=== PATIENT | male | born 1945 | race Caucasian/White ===

== ENCOUNTER → 2018-11-30 | Outpatient (CLI) | payer MEDICARE, BC | END | disposition home or self-care (01) | LOC: CFH 09:07 | PROVIDERS: ATTEND Nurse Practitioner Family | DX: K52.9 Noninfective gastroenteritis and colitis, unspecified (principal); K63.89 Other specified diseases of intestine; K57.30 Diverticulosis of large intestine without perforation or abscess without bleeding; I70.0 Atherosclerosis of aorta; M16.10 Unilateral primary osteoarthritis, unspecified hip; N42.89 Other specified disorders of prostate; M16.11 Unilateral primary osteoarthritis, right hip | CPT/HCPCS: 74176 ==

== ENCOUNTER → 2018-12-28 | Outpatient (CLI) | payer MEDICARE, BC ==
[~2018-12-28] MED LIST: OMNIPAQUE 350 MG/ML, 100ML BOTTLE ONE
== END | disposition home or self-care (01) ==
LOC: PETCFH 07:36
PROVIDERS: ATTEND Internal Medicine Hematology & Oncology
DX: M51.34 Other intervertebral disc degeneration, thoracic region (principal); M48.04 Spinal stenosis, thoracic region; C61 Malignant neoplasm of prostate; Z85.72 Personal history of non-Hodgkin lymphomas
CPT/HCPCS: 72157; 74177; 78306; A9503; Q9967

== ENCOUNTER 2019-02-08 07:00 | Inpatient (IN) | payer MEDICARE, BC ==
[~2019-02-08] VITALS: Ht 177.8 cm; Wt 93.1 kg
[~2019-02-08 07:00] MED LIST changes: +ACET-1600 PO; +ASPI81TA45 PO; +CHOL2000 PO; +DICL50TA4 PO; +GLUC1TAB35 PO; +INSU100V35 SQ; +IRON PO; +LACT1CAP64 PO; +LEVO75TA PO; +LINA5TAB PO; +LISI-170 PO; +MELO7.5T31 PO; +MULT-516 PO; +OMEG1CAP6 PO; -OMNIPAQUE 350 MG/ML, 100ML BOTTLE ONE; +PREG75CA PO; +SIMV40TA3 PO
[2019-02-08] MEDS ORDERED: TRANEXAMIC ACID 100 MG/ML, 10ML ONE ×2 (07:08)
[2019-02-08] MEDS ORDERED: ROPIvacaine/PF 0.5%, 30 ML ONE (07:08)
[2019-02-08] MEDS ORDERED: VANCOMYCIN 1,000 MG ONE (07:08)
[2019-02-08] MEDS ORDERED: KETOROLAC 60 MG/2 ML ONE (07:08)
[2019-02-08] MEDS ORDERED: EPINEPHRINE 1 MG/ML, 1ML ONE (07:09)
[2019-02-08] MEDS ORDERED: SODIUM CHLORIDE 0.9% 100 ML ONE (07:09)
[2019-02-08] MEDS ORDERED: GABAPENTIN 300 MG CAPSULE PO ONE (09:21)
[2019-02-08] MEDS ORDERED: LACTATED RINGERS 1,000 ML IV SCH (09:21)
[2019-02-08] MEDS ORDERED: ACETAMINOPHEN 500 MG TABLET PO ONE (09:21)
[2019-02-08] MEDS ORDERED: ZOLPIDEM 5MG TABLET PO PRN (10:00)
[2019-02-08] MEDS ORDERED: OXYcodone IR 5MG TABLET PO PRN (10:00)
[2019-02-08] MEDS ORDERED: ACETAMINOPHEN 650 MG/20.3 ML UDC PO PRN (10:00)
[2019-02-08] MEDS ORDERED: BISACODYL 10 MG SUPP PR PRN (10:00)
[2019-02-08] MEDS ORDERED: MAGNESIUM HYDROXIDE 8%, 30ML UDC PO PRN (10:00)
[2019-02-08] MEDS ORDERED: DIPHENHYDRAMINE 50 MG CAPSULE PO PRN (10:00)
[2019-02-08] MEDS ORDERED: SCOPOLAMINE PATCH, 1.5MG PATCH.TD72 TD ONE (10:00)
[2019-02-08] MEDS ORDERED: ONDANSETRON ODT 4 MG PO PRN (10:00)
[2019-02-08] MEDS ORDERED: ONDANSETRON 2MG/ML, 2ML IV PRN ×2 (10:00→12:00)
[2019-02-08] MEDS ORDERED: HYDROcodone/APAP 5/325 TABLET PO PRN (10:00)
[2019-02-08] MEDS ORDERED: SENNA/DOCUSATE TABLET PO PRN (10:00)
[2019-02-08] MEDS ORDERED: ROCURONIUM 10MG/ML,5ML ONE (11:44)
[2019-02-08] MEDS ORDERED: FENTANYL PF 100 MCG/2ML ONE ×2 (11:44→12:52)
[2019-02-08] MEDS ORDERED: CEFAZOLIN 1,000 MG ONE ×2 (11:44)
[2019-02-08] MEDS ORDERED: LIDOCAINE-MPF 2% ,5ML ONE (11:44)
[2019-02-08] MEDS ORDERED: PROPOFOL 10 MG/ML, 20ML ONE (11:44)
[2019-02-08] MEDS ORDERED: DEXAMETHASONE 4 MG/ML, 1ML ONE (11:44)
[2019-02-08] MEDS ORDERED: MIDAZOLAM 1 MG/ML, 2ML ONE (11:44)
[2019-02-08] MEDS ORDERED: METOCLOPRAMIDE 5 MG/ML, 2ML IV PRN (12:00)
[2019-02-08] MEDS ORDERED: FENTANYL PF 100 MCG/2ML IV PRN (12:00)
[2019-02-08] MEDS ORDERED: MEPERIDINE/PF 25MG/0.5ML IVPush PRN (12:00)
[2019-02-08] MEDS ORDERED: hydrALAzine 20 MG/ML, 1ML IV PRN (12:00)
[2019-02-08] MEDS ORDERED: OXYcodone 5 MG/5 ML ORAL.SOL UDC PO PRN (12:00)
[2019-02-08] MEDS ORDERED: LORazepam 2 MG/ML, 1ML IVPush PRN (12:00)
[2019-02-08] MEDS ORDERED: ONDANSETRON 2MG/ML, 2ML ONE (12:02)
[2019-02-08] MEDS ORDERED: GLYCOPYRROLATE 0.2MG/1ML, 5ML ONE (12:02)
[2019-02-08] MEDS ORDERED: NEOSTIGMINE 1 MG/ML, 10ML ONE (12:02)
[2019-02-08] MEDS ORDERED: HYDROmorphone 2 MG/ML, 1ML ONE (12:53)
[2019-02-08] MEDS ORDERED: OXYcodone 5 MG/5 ML ORAL.SOL UDC ONE (12:53)
[2019-02-08] MEDS: HYDROmorphone 2 MG/ML, 1ML IVPush PRN ×2 (12:58→13:06)
[2019-02-08 13:40] VITALS: BP 108/63
[2019-02-08] MEDS: NS + 20MEQ KCL 1,000 ML IV SCH (16:00)
[2019-02-08] MEDS: PREGABALIN 75 MG CAPSULE PO SCH ×2 (16:00→21:07)
[2019-02-08] MEDS: ASPIRIN 81 MG TABLET EC PO SCH (17:51)
[2019-02-08] MEDS ORDERED: SIMVASTATIN 40 MG TABLET PO SCH (21:00)
[2019-02-08] MEDS ORDERED: DOCUSATE 100 MG CAPSULE PO SCH (21:00)
[2019-02-08] MEDS: CEFAZOLIN PMX 2GM/50ML 50 ML IVPB SCH (21:07)
[2019-02-08 21:31] VITALS: BP 120/77
[2019-02-09 01:09] VITALS: BP 108/71
[2019-02-09 04:15] VITALS: BP 110/78
[2019-02-09] MEDS: NS + 20MEQ KCL 1,000 ML IV SCH (04:30)
[2019-02-09] MEDS: ASPIRIN 81 MG TABLET EC PO SCH (05:23)
[2019-02-09] MEDS: CEFAZOLIN PMX 2GM/50ML 50 ML IVPB SCH (05:23)
[2019-02-09] MEDS ORDERED: LEVOTHYROXINE 75 MCG TABLET PO SCH (06:00)
[2019-02-09 08:14] VITALS: BP 112/71
[2019-02-09] MEDS ORDERED: OXYC5CAP2 PO (09:00)
[2019-02-09] MEDS ORDERED: LISINOPRIL 20 MG TABLET PO SCH (09:00)
[2019-02-09] MEDS ORDERED: INSULIN DEGLUDEC 20 UNIT SQ SCH (09:00)
[2019-02-09] MEDS ORDERED: LINAGLIPTIN 5 MG TAB PO SCH (09:00)
[2019-02-09] MEDS ORDERED: TRAM50TA2 PO (09:02)
== END 2019-02-09 09:30 | disposition home or self-care (01) | DRG 470 ==
LOC: ORIP 08:50 → 4NOR 13:28 → DCLOUNGE 02-09 09:22
PROVIDERS: ADMIT Orthopaedic Surgery; ATTEND Orthopaedic Surgery
PROC: 0SR906A Replacement of Right Hip Joint with Oxidized Zirconium on Polyethylene Synthetic Substitute, Uncemented, Open Approach (ICD-10-PCS; principal; 2019-02-08 11:15)
DX: M16.11 Unilateral primary osteoarthritis, right hip (principal); I10 Essential (primary) hypertension; E11.9 Type 2 diabetes mellitus without complications; E03.9 Hypothyroidism, unspecified; M25.751 Osteophyte, right hip; Z79.899 Other long term (current) drug therapy; Z79.4 Long term (current) use of insulin
CPT/HCPCS: 36415; 72170; 76000; 82962; 85014; 85018; C1713; G0378; J0171; J0690; J1100; J1170; J1885; J2250; J2405; J2704; J2710; J2795; J3010; J3370; C1776; J7120

== ENCOUNTER 2020-01-08 14:05 | Outpatient (CLI) | payer MEDICARE, OTHER ==
[~2020-01-08 14:05] MED LIST changes: +OXYC5CAP2 PO; +SIMV40TA20 PO; -SIMV40TA3 PO; +TRAM50TA2 PO
== END 2020-01-08 23:59 | disposition home or self-care (01) ==
LOC: CFH 14:05
PROVIDERS: ATTEND Genetic Counselor, MS
DX: N63.20 Unspecified lump in the left breast, unspecified quadrant (principal); N62 Hypertrophy of breast
CPT/HCPCS: 76642; 77066